=== PATIENT | female | born 1940 | race Caucasian/White ===

== ENCOUNTER 2018-06-03 17:42 | Observation (INO) ==
[2018-06-04] MEDS ORDERED: Acetaminophen 325 MG Tablet PO PRN (00:56)
[2018-06-04] MEDS ORDERED: Bisacodyl 10 MG Supp RECTAL PRN (00:56)
[2018-06-04] MEDS ORDERED: Morphine Sulfate Inj 2 MG/ML Vial IV.PUSH PRN (01:04)
[2018-06-04 02:31] LABS: Creatine Kinase 204 U/L (26-192)
[2018-06-04 02:43] LABS: CKMB Percent 0.5 % (0.0-4.0); Creatine Kinase MB 1.1 ng/mL (0.5-3.6)
[2018-06-04 08:10] LABS: Creatine Kinase 60 U/L (26-192)
--- NOTE | 2018-06-04 09:12 | P.HP ---
History of Present Illness Primary Care Physician: UNKNOWN History of Present Illness: 78-year-old female being admitted for intractable chest pain. Patient is primarily [place]-speaking, I am able to converse with her in her [place] tongue. Patient reports being in his usual state of health until about 1 week ago when she began experiencing some left-sided chest pain. It being intermittent and at worst it can get very severe. Says that the pain would worsen with very deep breathing and also would worsen with repositioning herself, on her left side, and when she would twist and turn in bed it would feel that there is a pulling and burning component to the pain. She would take tramadol for her chronic knee pain and said that this would just transiently subside the pain of her chest. Reports having some nausea but no vomiting. Daughter reports decreased p.o. intake this week. No diarrhea or fevers. Patient reports having shortness of breath upon exertion but none at rest. In the emergency department she had a CTA performed which was negative for any PE, but did show a 1.8 cm lesion concerning for bronchogenic carcinoma. I independently reviewed the chest x-ray and see no acute findings otherwise. I independently reviewed the EKG and there are no ischemic changes seen. Case discussed with oncology who will arrange for outpatient visit. Review of Systems All other systems reviewed negative except as stated in HPI PMFSH - History History Provided By: Patient, Family Member - Medical History Medical History: Medical History (Last Reviewed 06/04/18 @ 09:09 by David Velásquez MD) Breast CA Cyst of left kidney Diabetes HTN (hypertension) Hyperlipidemia Rheumatoid arthritis - Surgical History Surgical History: Surgical History (Last Updated 06/03/18 @ 18:19 by Julia Okeefe RN) Hx of eye surgery Hx of right mastectomy - Family History Family History: Family History (Last Updated 06/04/18 @ 09:12 by David Velásquez MD) Brother Lung cancer - Social History I have reviewed the patient's Social History: Yes - Tobacco History Second Hand Smoke Exposure: Yes Tobacco Use In Past 30 Days: Yes Smoking Status: Current every day smoker Tobacco Type: Cigarettes - Alcohol History How Often Do You Have a Drink Containing Alcohol: Never - Substance Use History Substance History: No History of Abuse - Travel History Recent Travel in the [place] Within the Last 8 Weeks: No Recent Travel Out of the Country Within the Last 8 Weeks: No Medications and Allergies Active Medications: Active Medications Acetaminophen (Tylenol) 650 mg PO Q4H PRN PRN Reason: Temp > 100.4 Al Hydroxide/Mg Hydroxide (Milk Of Magnesia Liq) 30 ml PO Q12H PRN PRN Reason: Mild Constipation Bisacodyl (Dulcolax Supp) 10 mg RECTAL DAILY PRN PRN Reason: SEVERE CONSITIPATION Lactulose (Lactulose Liq) 30 ml PO DAILY PRN PRN Reason: SEVERE CONSITIPATION Ondansetron HCl (Zofran Inj) 4 mg IV.PUSH Q6H PRN PRN Reason: NAUSEA OR VOMITING Sennosides (Senokot) 17.2 mg PO Q12H PRN PRN Reason: Moderate Constipation Allergies Allergy/AdvReac Type Severity Reaction Status Date / Time No Known Allergies Allergy Verified 06/03/18 18:10 Home Medications Medication Instructions Recorded Confirmed Type amlodipine 5 mg PO DAILY 06/03/18 06/04/18 History atorvastatin 10 mg PO HS 06/03/18 06/04/18 History insulin lispro protamin-lispro 50 unit SUBCUT DAILY 06/03/18 06/04/18 History [Humalog Mix 75-25(U-100)Insuln] lisinopril-hydrochlorothiazide 1 tab PO DAILY 06/03/18 06/04/18 History insulin lispro protamin-lispro 30 unit SUBCUT HS 06/04/18 06/04/18 History [Humalog Mix 75-25(U-100)Insuln] Exam Vital signs: Vital Signs 06/04/18 00:00 06/04/18 00:14 06/04/18 04:00 Temperature 97.9 F 97.5 F L Pulse Rate 74 66 73 Respiratory Rate 20 20 Blood Pressure 168/62 H 178/77 H Pulse Oximetry 96 96 06/04/18 07:49 06/04/18 08:00 Temperature 97.8 F Pulse Rate 79 Respiratory Rate 20 20 Blood Pressure 156/70 H Pulse Oximetry 97 Intake & Output 06/03/18 06/04/18 06/04/18 18:59 06:59 18:59 Intake Total 120 / 120 Output Total 500 / 500 Balance -380 / -380 Weight 71 kg Intake: Oral 120 / 120 Output: Urine 500 / 500 Other: Weight On Admission 71.6 kg Narrative: VS: afebrile GENERAL: Well nourished elderly female, moderate distress secondary to pain SKIN: Warm and dry. EYES: No scleral icterus. No injection or drainage. ENT: No nasal bleeding or discharge. Mucous membranes pink and moist. CARDIOVASCULAR: Regular rate and rhythm. no murmurs RESPIRATORY: No accessory muscle use. Clear to auscultation. Breath sounds equal bilaterally. GASTROINTESTINAL: Abdomen soft, non-tender, nondistended. Extremities: No clubbing, cyanosis, or edema. No obvious deformities. MUSCULOSKELETAL: adequate muscle bulk and tone for age and habitus. There is diffuse tenderness to palpation over the left middle set of ribs and left-sided flank. Patient affirms that this has been the same type of chest pain she has been having all this time. NEUROLOGICAL: Awake and alert. No obvious cranial nerve deficits. No facial droop nor slurred speech noted. PSYCHIATRIC: Appropriate mood and affect; insight and judgment normal. Results - Labs Labs: Laboratory Results - last 24 hr 06/04/18 06/04/18 02:00 06:00 Total Creatine Kinase 204 H 60 CK-MB (CK-2) 1.1 CK-MB (CK-2) % 0.5 Troponin I Less than 0.02 L Less than 0.02 L Caprini VTE Risk Assessment Caprini VTE Risk Assessment: Moderate/High Risk (score >= 2) Caprini Risk Assessment Model: Point Value = 1 Point Value = 2 Point Value = 3 Point Value = 5 Age 41-60 Minor surgery BMI > 25 kg/m2 Swollen legs Varicose veins or History of unexplained or recurrent spontaneous Oral contraceptives or hormone replacement Sepsis (< 1 month) Serious lung disease, including pneumonia (< 1 month) Abnormal pulmonary function Acute myocardial infarction Congestive heart failure (< 1 month) History of inflammatory bowel disease Medical patient at bed rest Age 61-74 Arthroscopic surgery Major open surgery (> 45 min) Laparoscopic surgery (> 45 min) Malignancy Confined to bed (> 72 hours) Immobilizing plaster cast Central venous access Age >= 75 History of VTE Family history of VTE Factor V Leiden Prothrombin [id number] Lupus anticoagulant Anticardiolipin antibodies Elevated serum homocysteine Heparin-induced thrombocytopenia Other congenital or acquired thrombophilia Stroke (< 1 month) Elective arthroplasty Hip, pelvis, or leg fracture Acute spinal cord injury (< 1 month) Prophylaxis Regimen: Total Risk Factor Score Risk Level Prophylaxis Regimen 0-1 Low Early ambulation 2 Moderate Order ONE of the following: *Sequential Compression Device (SCD) *Heparin 5000 units SQ BID 3-4 Higher Order ONE of the following medications: *Heparin 5000 units SQ TID *Enoxaparin/Lovenox 40 mg SQ daily (WT < 150 kg, CrCl > 30 mL/min) *Enoxaparin/Lovenox 30 mg SQ daily (WT < 150 kg, CrCl > 10-29 mL/min) *Enoxaparin/Lovenox 30 mg SQ BID (WT < 150 kg, CrCl > 30 mL/min) AND/OR *Sequential Compression Device (SCD) 5 or more Highest Order ONE of the following medications: *Heparin 5000 units SQ TID (Preferred with Epidurals) *Enoxaparin/Lovenox 40 mg SQ daily (WT < 150 kg, CrCl > 30 mL/min) *Enoxaparin/Lovenox 30 mg SQ daily (WT < 150 kg, CrCl > 10-29 mL/min) *Enoxaparin/Lovenox 30 mg SQ BID (WT < 150 kg, CrCl > 30 mL/min) AND *Sequential Compression Device (SCD) Assessment and Plan - Plan 78-year-old female being admitted for intractable chest pain Intractable chest pain Clinically does not correlate with any acute cardiac etiology, but rather is very convincing for a combination of costochondritis and a mass-effect from possible bronchogenic carcinoma with lymphadenopathy Does not need further cardiac workup, oncology contacted and is seeing the patient, will likely need to schedule an outpatient biopsy -Pain control, with a trial of oral pain medication and if needed narcotic -antiemetic -CT showing 1.8 x 1.3 cm lobular soft tissue mass in the left infrahilar region and lingula concerning for primary bronchogenic carcinoma. Para-aortic adenopathy. 5 mm noncalcified pulmonary nodule in the left lower lobe which is nonspecific. Addendum: Chest pain almost resolved. No further inpatient workup needed at this time. Tolerated p.o. well. Patient to follow-up closely with oncology outpatient. Patient has met maximum benefit from hospitalization is clinically stable for discharge. [facility] Prescription Drug Monitoring Database has been queried and verified prior to prescribing the controlled subsection. Patient is having significant pain caused by lung cancer which will last more than 3 days. Trial of alternative treatment options other than prescribed opioids has not helped. I believe that it is medically necessary to treat the patients pain because it is affecting patients ability to function.
[2018-06-04] MEDS ORDERED: Ketorolac Inj 30 MG/ML (IVP) Vial IV.PUSH ONE (09:24)
[2018-06-04] MEDS ORDERED: Sod Chloride 0.9% Inj 1,000 ML IV.CONT SCH (09:30)
[2018-06-04] MEDS ORDERED: Sodium Chlor 0.9% Inj 250 ML IV.SIG SCH (10:00)
--- NOTE | 2018-06-04 12:09 | MB ---
cc: Aris Ovalle MD DATE: 06/04/2018 REQUESTING PHYSICIAN: David Velásquez MD REASON FOR CONSULTATION: Evaluation of newly diagnosed left lung mass. HISTORY OF PRESENT ILLNESS: This is a 78-year-old lady with a history of right breast cancer in the early , treated with mastectomy and 2 years of chemotherapy, according to her, in [place], who was admitted with left posterior chest wall and chest pain with radiation to the left anterior side, to the left breast, without any masses in the past. She was ruled out for an TX, and a CTA was performed to rule out pulmonary embolism due to her symptoms and that was negative for PE, but showed a left lingular mass and periaortic lymphadenopathy in the mediastinum, hence oncology was consulted. The patient and daughter were interviewed in the exam room and the patient actually is feeling well, and Dr. Velásquez, as well as the patient, have decided to be discharged, and the patient's daughter wants to take her home and do the workup as outpatient. REVIEW OF SYSTEMS: No headaches, motor or sensory symptoms. No shortness of breath. Chest pain as mentioned above. No fevers or night sweats. No recent weight loss. No abdominal pain, distention, blood in the stool or black stools. No frequency, urgency, or hematuria. PAST MEDICAL HISTORY: Significant for hypertension, hyperlipidemia, rheumatoid arthritis, left cystic kidney, and diabetes. MEDICATIONS: She has been on: 1. Lactulose. 2. Zofran. 3. Senokot. 4. Atorvastatin. 5. Insulin. 6. Tramadol. SOCIAL HISTORY: Current everyday smoker, smoked less than half a pack a day for many years, and did not abuse alcohol. FAMILY HISTORY: Noncontributory. PHYSICAL EXAMINATION: GENERAL: An elderly lady, healthy appearing, in no apparent distress. VITAL SIGNS: Stable. She is afebrile. Pallor present. No icterus. No lymphadenopathy in the neck or axilla. HEENT: Without oropharyngeal lesions. No gum bleeding or hypertrophy. NEUROLOGIC: Alert and oriented x 4, nonfocal. NECK: No spinal tenderness. No JVD. CARDIOVASCULAR: S1, S2, regular rate and rhythm. LUNGS: Bilaterally clear without crackles or wheeze. Left breast without nodule, mass, or tenderness. Right without evidence of chest wall recurrence. ABDOMEN: Soft, without palpable hepatosplenomegaly. EXTREMITIES: No edema or evidence of DVT. LABORATORY DATA: White count 9.2, hemoglobin 13, platelets 241. Chemistries normal, except for a creatinine of 1.2 and GFR of 44. Troponin I less than 0.02. Alkaline phosphatase is 117, AST 21, ALT 20. CTA of the chest done on 06/03/2018 in the emergency room showed no filling defects in the pulmonary arteries,1.8 x 1.3 cm lobular soft tissue mass in the left infrahilar region and lingula concerning for primary bronchogenic carcinoma, periaortic adenopathy in the mediastinum measuring approximately 2.5 x 1.6 cm in the left periaortic area. A 5 mm noncalcified pulmonary nodule in the left lower lobe. ASSESSMENT AND PLAN: A 78-year-old smoker with a history of right breast cancer, status post and chemotherapy in the early , now has a left hilar lingular mass that is consistent with primary bronchogenic carcinoma. She needs workup with a CT-guided biopsy and/or bronchoscopic biopsy, and the patient and family want to go home at this time and do not want to be evaluated. At this time, it is reasonable to have the workup done as outpatient. I will see her in followup in the office and arrange for pulmonary consultation and bronchoscopic biopsy, and also a PET/CT scan and MRI of the brain as needed. All of these issues were discussed with the patient and family, and they were very appreciative for the consultation. I will see her in followup in the office. MD ALLA Fam/corona/christine , 09:12 AM , 09:20 AM
[2018-06-05] MEDS ORDERED: Non-Formulary Drug (Lisinopril-Hydrochlorothiazide [Lisinopril-Hydrochlorothiazide] 1 TAB) PO SCH (09:00)
[2018-06-05] MEDS ORDERED: Meloxicam 15 MG Tablet PO SCH (09:00)
== END 2018-06-04 13:28 | disposition home or self-care (01) ==
LOC: PHEDDLT 23:45 → PH3 23:45
PROVIDERS: ADMIT Hospitalist; ATTEND Hospitalist